=== PATIENT | female | born 1990 | race Caucasian/White ===

== ENCOUNTER 2016-05-03 13:17 | Inpatient (IN) | payer OTHER ==
[2016-05-03 13:49] VITALS: BMI 18.3
--- NOTE | 2016-05-03 14:57 | HP ---
COWS - Scale Resting Pulse: 1= [place] 81-100 Sweatin=Flushed/Facial Moisture Restless Observation: 3= Extraneous Movement Pupil Size: 2= Moderately Dilated Bone or Joint Aches: 2= Severe Diffuse Aches Runny Nose/ Eye Tearin= Runny Nose/Eyes GI Upset > 30mins: 3= Vomiting/Diarrhea Tremor Observation: 2= Slight Tremor Visible Yawning Observation: 2= >3x During Session Anxiety or Irritability: 2=Irritable/Anxious Goose Flesh Skin: 0=Smooth Skin COWS Score: 21 Admission ROS S - HPI Chief Complaint: i need help to stop using drugs Allergies/Adverse Reactions: Allergies Allergy/AdvReac Type Severity Reaction Status Date / Time No Known Allergies Allergy Verified 10/01/15 17:12 History of Present Illness: this 26 years old female with heroin and cocaine dependence,with withdrawal symptom,[facility]15 not completed anxiety,depression,insomnia weight loss nicotine dependence longest period of sobriety 8 months - Ebola screening Have you traveled outside of the country in the last 21 days: No (N) Have you had contact with anyone from an Ebola affected area: No Have you been sick,other than usual withdrawal symptoms: No Do you have a fever: No - Review of Systems Constitutional: Chills, Diaphoresis, Loss of Appetite, Malaise, Night Sweats, Changes in sleep, Weakness, Unintentional Wgt. Loss EENT: reports: Tearing, Nose Congestion Respiratory: reports: No Symptoms reported Cardiac: reports: No Symptoms Reported GI: reports: Diarrhea, Nausea, Vomiting, Abdominal cramping : reports: No Symptoms Reported Musculoskeletal: reports: Back Pain, Joint Pain, Muscle Pain, Neck Pain Integumentary: reports: Dryness Neuro: reports: Headache, Tremors Endocrine: reports: No Symptoms Reported Hematology: reports: No Symptoms Reported Psychiatric: reports: Anxious, Depressed Other Systems: Reviewed and Negative Patient History - Patient Medical History Hx Anemia: No Hx Asthma: Yes (MDI) Hx Chronic Obstructive Pulmonary Disease (COPD): No Hx Cardiac Disorders: No Hx Hypertension: No Hx Hypercholesterolemia: No HX Cerebrovascular Accident: No Hx Seizures: Yes (LAST EPISODE 03/2015) Hx Diabetes: No Hx Gastrointestinal Disorders: No Hx Genitourinary Disorders: No Hx Sexually Transmitted Disorders: No Hx Renal Disease (ESRD): No Hx Thyroid Disease: No Hx Human Immunodeficiency Virus (HIV): No (NEGATIVE HX last 2015 ) Hx Hepatitis C: No Hx Depression: Yes (STOPPED TAKING SEROQUEL IN JUNE) Hx Suicide Attempt: Yes (pill overdose in 02/2015;DENIES CURRENT IDEATIONS.) Hx Bipolar Disorder: Yes Hx Schizophrenia: No Other Medical History: no suicidal,no homicidal - Patient Surgical History Past Surgical History: No Hx Neurologic Surgery: No Hx Cataract Extraction: No Hx Cardiac Surgery: No Hx Lung Surgery: No Hx Breast Surgery: No Hx Breast Biopsy: No Hx Abdominal Surgery: No Hx Appendectomy: No Hx Cholecystectomy: No Hx Genitourinary Surgery: No Hx Section: No Hx Orthopedic Surgery: No Anesthesia Reaction: No - PPD History Previous Implant?: Yes Documented Results: Negative w/o proof Date: 10/03/15 PPD to be Administered?: No - Reproductive History Patient is a Female of Child Bearing Age (11 -55 yrs old): Yes Last Menstrual Period: 12/03/15 Patient : No - Smoking Cessation Smoking history: Current every day smoker Have you smoked in the past 12 months: Yes Aproximately how many cigarettes per day: 10 Hx Chewing Tobacco Use: No Initiated information on smoking cessation: No 'Breaking Loose' booklet given: 05/03/16 - Substance & Tx. History Hx Alcohol Use: No Hx Substance Use: Yes Substance Use Type: Cocaine, Heroin Hx Substance [facility] - Substances Abused Heroin Route: Injection Frequency: Daily Amount used: 5 to 6 bags Age of first use: 24 Date of Last Use: 05/03/16 Cocaine Route: Smoking Frequency: Daily Amount used: 50$ Age of first use: 22 Date of Last Use: 05/02/16 Family Disease History - Family Disease History Family Disease History: CA: Grandparent (GF ALCOHOLISM/GANGRENE STOMACH- ), Other: Mother (BIPOLAR/ALCOHOLISM) Admission Physical Exam BHS - Vital Signs Vital Signs: Vital Signs - 24 hr 05/03/16 13:48 Temperature 98.2 F Pulse Rate 91 H Respiratory 18 Rate Blood Pressure 129/75 - Physical General Appearance: Yes: Moderate Distress, Intoxicated, Tremorous, Irritable, Sweating, Anxious HEENTM: Yes: Nasal Congestion, Rhinorrhea Respiratory: Yes: Lungs Clear Neck: Yes: Within Normal Limits Breast: Yes: Breast Exam Deferred Cardiology: Yes: Within Normal Limits, Regular Rhythm, Regular Rate, S1, S2 Abdominal: Yes: Within Normal Limits, Normal Bowel Sounds, Non Tender, Flat, Soft Genitourinary: Yes: Within Normal Limits Back: Yes: Muscle Spasm Musculoskeletal: Yes: Back pain, Joint Stiffness, Muscle Pain Extremities: Yes: Within Normal Limits, Tremors Neurological: Yes: paper plate machine tender II-XII NML intact, Fully Oriented, Alert, Motor Strength 5/5 Integumentary: Yes: Dry, Track [place] Lymphatic: Yes: Within Normal Limits - Diagnostic (1) Asthma Current Visit: No Status: Chronic Qualifiers: Asthma severity: mild intermittent Asthma complication type: uncomplicated Qualified Code(s): J45.20 - Mild intermittent asthma, uncomplicated (2) Cocaine dependence, uncomplicated Current Visit: No Status: Chronic (3) Opioid dependence with withdrawal Current Visit: No Status: Chronic (4) Seizure disorder Current Visit: No Status: Suspected (5) Anxiety and depression Current Visit: Yes Status: Acute (6) Weight loss Current Visit: Yes Status: Acute Cleared for Admission [facility] - Detox or Rehab [facility] Level of Care: Medically Managed Detox Regimen/Protocol: Methadone [facility] Breath Alcohol Content Breath Alcohol Content: 0 Urine Pregancy Test - Result Urine Test Results: Negative- NO Line Present Urine Drug Screen - Results Drug Screen Negative: No Urine Drug Screen Results: ROSALIO-Cocaine, OPI-Opiates, TCA-Tricyclic Antidepress
[2016-05-03] MEDS ORDERED: METHADONE HCL 10 MG TABLET (FOR DETOX USE ONLY) PO ONE ×3 (15:15→23:00)
[2016-05-03] MEDS ORDERED: P-EPHED 60MG/TRIPROLIDI 2.5MG TABLET PO PRN (15:15)
[2016-05-03] MEDS ORDERED: MENTHOL/PHENOL 1 EACH UD MM PRN (15:15)
[2016-05-03] MEDS ORDERED: guaiFENesin/D-METHORPHAN HB 10 ML UNIT-DOSE CUPS PO PRN (15:15)
[2016-05-03] MEDS ORDERED: ACETAMINOPHEN 325 MG TABLET (FP) PO PRN (15:15)
[2016-05-03] MEDS ORDERED: LOPERAMIDE HCL 2 MG CAPSULE PO PRN (15:15)
[2016-05-03] MEDS ORDERED: MAGNESIUM CITRATE 300 ML BOTTLE PO PRN (15:15)
[2016-05-03] MEDS ORDERED: MAG HYDROX/AL HYDROX/SIMETH 30 ML UNIT-DOSE CUP PO PRN (15:15)
[2016-05-03] MEDS ORDERED: ALBUTEROL SO4 6.7 GM HFA INHALER IH PRN (15:18)
[2016-05-03] MEDS: diazePAM 5 MG TABLET PO PRN (19:57)
[2016-05-03] MEDS: diphenhydrAMINE HCL 50 MG CAPSULE PO PRN (22:17)
[2016-05-03] MEDS: THIAMINE HCL 100 MG TABLET (FP) PO SCH (22:17)
[2016-05-04] MEDS: MAGNESIUM HYDROX 2400MG/30ML ORAL SUSPENSION 30 ML CUP PO PRN ×2 (00:07→18:11)
[2016-05-04 09:14] LABS: MCH 29.3 pg (25.7-33.7); MCHC 33.8 g/dl (32.0-36.0); MEAN CELL VOLUME 86.7 fl (80-96); MEAN PLT VOLUME 7.5 fl (7.5-11.1); PLATELET COUNT 246 K/MM3 (134-434); RDW 14.7 % (11.6-15.6); WHITE BLOOD COUNT 5.4 K/mm3 (4.0-10.0)
[2016-05-04 09:28] LABS: ANION GAP 9 (8-16); CALCIUM 7.9 mg/dL (8.5-10.1); CO2 24 mmol/L (21-32); GLUCOSE,RANDOM 165 mg/dL (74-106)
[2016-05-04 09:32] LABS: ALK PHOS 67 U/L (45-117); BILIRUBIN,TOTAL 0.3 mg/dL (0.2-1.0); CREATININE 0.8 mg/dL (0.55-1.02); SGOT/AST 15 U/L (15-37); SGPT/ALT 18 U/L (12-78); TOT PROT 6.4 g/dl (6.4-8.2)
[2016-05-04] MEDS ORDERED: METHADONE HCL 10 MG TABLET (FOR DETOX USE ONLY) PO ONE (10:00)
[2016-05-04] MEDS: PRENATAL VITAMINS W/ FOLIC ACID TABLET (FP) PO SCH (10:33)
--- NOTE | 2016-05-04 11:32 | PN ---
BHS COWS - Scale Resting Pulse: 2= MT 101-120 Sweatin= Chills/Flushing Restless Observation: 3= Extraneous Movement Pupil Size: 1= Pupils >than Normal Bone or Joint Aches: 2= Severe Diffuse Aches Runny Nose/ Eye Tearin= Runny Nose/Eyes GI Upset > 30mins: 2= Nausea/Diarrhea Tremor Observation of Outstretched Hands: 2= Slight Tremor Visible Yawning Observation: 1= 1-2x During Session Anxiety or Irritability: 2=Irritable/Anxious Goose Flesh Skin: 0=Smooth Skin COWS Score: 18 S Progress Note (SOAP) Subjective: ALERT,IRRITABLE,ANXIOUS,INTERRUPTED SLEEP,PAIN IN THE BODY AND BACK Objective: 05/04/16 11:30 Vital Signs Temperature 98.6 F 05/04/16 10:00 Pulse Rate 101 H 05/04/16 10:00 Respiratory Rate 18 05/04/16 10:00 Blood Pressure 115/65 05/04/16 10:00 O2 Sat by Pulse Oximetry (%) EKG NSR,NORMAL ECG 05/04/16 11:30 Laboratory Last Values WBC 5.4 K/mm3 (4.0-10.0) 05/04/16 07:20 RBC 4.36 M/mm3 (3.60-5.2) 05/04/16 07:20 Hgb 12.8 GM/dL (10.7-15.3) 05/04/16 07:20 Hct 37.8 % (32.4-45.2) 05/04/16 07:20 MCV 86.7 fl (80-96) 05/04/16 07:20 MCHC 33.8 g/dl (32.0-36.0) 05/04/16 07:20 RDW 14.7 % (11.6-15.6) 05/04/16 07:20 Plt Count 246 K/MM3 (134-434) 05/04/16 07:20 MPV 7.5 fl (7.5-11.1) 05/04/16 07:20 Sodium 138 mmol/L (136-145) 05/04/16 07:20 Potassium 3.8 mmol/L (3.5-5.1) 05/04/16 07:20 Chloride 105 mmol/L (98-107) 05/04/16 07:20 Carbon Dioxide 24 mmol/L (21-32) 05/04/16 07:20 Anion Gap 9 (8-16) 05/04/16 07:20 BUN 11 mg/dL (7-18) 05/04/16 07:20 Creatinine 0.8 mg/dL (0.55-1.02) 05/04/16 07:20 Creat Clearance w eGFR > 60 (>60) 05/04/16 07:20 Random Glucose 165 mg/dL (74-106) H D 05/04/16 07:20 Calcium 7.9 mg/dL (8.5-10.1) L 05/04/16 07:20 Total Bilirubin 0.3 mg/dL (0.2-1.0) D 05/04/16 07:20 AST 15 U/L (15-37) D 05/04/16 07:20 ALT 18 U/L (12-78) 05/04/16 07:20 Alkaline Phosphatase 67 U/L (45-117) 05/04/16 07:20 Total Protein 6.4 g/dl (6.4-8.2) 05/04/16 07:20 Albumin 3.0 g/dl (3.4-5.0) L 05/04/16 07:20 RPR Titer Nonreactive (NONREACTIVE) 05/04/16 07:20 Assessment: 05/04/16 11:31 WITHDRAWAL SYMPTOM Plan: CONTINUE DETOX,BGM MONITORING,INITIAL GLUCOSE 165
[2016-05-04 13:39] LABS: URINE APPEARANCE SLCLOUDY; URINE BILIRUBIN NEGATIVE (NEGATIVE); URINE BLOOD NEGATIVE (NEGATIVE); URINE COLOR LTYELLOW; URINE GLUCOSE (UA) NEGATIVE (NEGATIVE); URINE KETONE NEGATIVE (NEGATIVE); URINE LEUK ESTERASE NEGATIVE (NEGATIVE); URINE NITRITE NEGATIVE (NEGATIVE); URINE PROTEIN NEGATIVE (NEGATIVE); URINE UROBILINOGEN NEGATIVE E.U./dl (0.2-1.0)
--- NOTE | 2016-05-04 14:39 | EKG ---
Test Reason : Blood Pressure : / mmHG Vent. Rate : 096 BPM Atrial Rate : 096 BPM P-R Int : 168 ms QRS Dur : 094 ms QT Int : 332 ms P-R-T Axes : 064 012 058 degrees QTc Int : 419 ms NORMAL SINUS RHYTHM NORMAL ECG NO PREVIOUS ECGS AVAILABLE Confirmed by IDALIA ISRAEL MD ([id number]) on 05/04/2016 2:39:33 PM Referred By: Confirmed By:IDALIA ISRAEL MD
[2016-05-04] MEDS: diazePAM 5 MG TABLET PO PRN ×2 (17:02→23:44)
[2016-05-04] MEDS: IBUPROFEN 400 MG TABLET (FP) PO PRN (18:13)
[2016-05-04] MEDS: NICOTINE POLACRILEX 2 MG GUM BC PRN ×2 (20:39→23:44)
[2016-05-04] MEDS: diphenhydrAMINE HCL 50 MG CAPSULE PO PRN (23:25)
[2016-05-04] MEDS: THIAMINE HCL 100 MG TABLET (FP) PO SCH (23:25)
[2016-05-05] MEDS: IBUPROFEN 400 MG TABLET (FP) PO PRN (08:50)
[2016-05-05] MEDS ORDERED: METHADONE HCL 5 MG TABLET (FOR DETOX USE ONLY) PO ONE (10:00)
[2016-05-05] MEDS: hydrOXYzine PAMOATE 25 MG CAPSULE (FP) PO PRN ×2 (10:06→13:53)
[2016-05-05] MEDS: PRENATAL VITAMINS W/ FOLIC ACID TABLET (FP) PO SCH (10:06)
[2016-05-05] MEDS: diazePAM 5 MG TABLET PO PRN (10:06)
--- NOTE | 2016-05-05 10:09 | PN ---
BHS COWS - Scale Resting Pulse: 1= [place] 81-100 Sweatin= Chills/Flushing Restless Observation: 3= Extraneous Movement Pupil Size: 1= Pupils >than Normal Bone or Joint Aches: 2= Severe Diffuse Aches Runny Nose/ Eye Tearin= Nasal Congestion GI Upset > 30mins: 2= Nausea/Diarrhea Tremor Observation of Outstretched Hands: 2= Slight Tremor Visible Yawning Observation: 1= 1-2x During Session Anxiety or Irritability: 2=Irritable/Anxious Goose Flesh Skin: 0=Smooth Skin COWS Score: 16 BHS Progress Note (SOAP) Subjective: ALERT,IRRITABLE,ANXIOUS,INTERRUPTED SLEEP,TREMOR,PAIN IN THE BODY AND BACK Objective: 05/05/16 10:08 Vital Signs Temperature 98.1 F 05/05/16 09:50 Pulse Rate 99 H 05/05/16 09:50 Respiratory Rate 16 05/05/16 09:50 Blood Pressure 136/66 05/05/16 09:50 O2 Sat by Pulse Oximetry (%) [facility] 102 Assessment: 05/05/16 10:08 WITHDRAWAL SYMPTOM Plan: CONTINUE DETOX
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
[2016-05-05] MEDS: NICOTINE POLACRILEX 2 MG GUM BC PRN (12:33)
[2016-05-05] MEDS ORDERED: cloNIDine HCL 0.1 MG TABLET PO ONE (12:45)
[2016-05-05] MEDS: CYCLOBENZAPRINE HCL 10 MG TABLET (FP) PO PRN ×2 (12:53→22:27)
[2016-05-05] MEDS: MAGNESIUM HYDROX 2400MG/30ML ORAL SUSPENSION 30 ML CUP PO PRN (13:53)
[2016-05-05] MEDS: cloNIDine HCL 0.1 MG TABLET PO SCH (22:27)
[2016-05-05] MEDS: THIAMINE HCL 100 MG TABLET (FP) PO SCH (22:28)
[2016-05-05] MEDS: ZOLPIDEM TARTRATE 10 MG TABLET (PARK CARE ONLY) PO PRN (22:30)
[2016-05-06] MEDS: diazePAM 5 MG TABLET PO PRN ×2 (04:11→12:43)
[2016-05-06] MEDS: IBUPROFEN 400 MG TABLET (FP) PO PRN (04:11)
[2016-05-06] MEDS ORDERED: METHADONE HCL 5 MG TABLET (FOR DETOX USE ONLY) PO ONE (10:00)
[2016-05-06] MEDS: ESCITALOPRAM OXALATE 10 MG TABLET (FP) PO SCH (10:48)
[2016-05-06] MEDS: cloNIDine HCL 0.1 MG TABLET PO SCH ×2 (10:48→22:22)
[2016-05-06] MEDS: PRENATAL VITAMINS W/ FOLIC ACID TABLET (FP) PO SCH (10:48)
[2016-05-06] MEDS ORDERED: FLUCONAZOLE 50 MG TABLET PO ONE (14:00)
--- NOTE | 2016-05-06 14:11 | PN ---
[facility] Progress Note (SOAP) Subjective: interrupted sleep, sweats, bodyaches , vaginal whitish d/c /itch Objective: 05/06/16 14:09 Vital Signs Temperature 97.7 F 05/06/16 13:58 Pulse Rate 112 H 05/06/16 13:58 Respiratory Rate 20 05/06/16 13:58 Blood Pressure 121/70 05/06/16 13:58 O2 Sat by Pulse Oximetry (%) Laboratory Tests 05/04/16 05/04/16 05/04/16 07:20 07:20 07:20 WBC 5.4 RBC 4.36 Hgb 12.8 Hct 37.8 MCV 86.7 MCHC 33.8 RDW 14.7 Plt Count 246 MPV 7.5 Sodium 138 Potassium 3.8 Chloride 105 Carbon Dioxide 24 Anion Gap 9 BUN 11 Creatinine 0.8 Creat Clearance w eGFR > 60 POC Glucometer Random Glucose 165 H D Calcium 7.9 L Total Bilirubin 0.3 D AST 15 D ALT 18 Alkaline Phosphatase 67 Total Protein 6.4 Albumin 3.0 L Urine Color Urine Appearance Urine pH Ur Specific [place] Urine Protein Urine Glucose (UA) Urine Ketones Urine Blood Urine Nitrite Urine Bilirubin Urine Urobilinogen Ur Leukocyte Esterase RPR Titer Nonreactive 05/04/16 05/05/16 05/06/16 12:00 07:30 06:06 WBC RBC Hgb Hct MCV MCHC RDW Plt Count MPV Sodium Potassium Chloride Carbon Dioxide Anion Gap BUN Creatinine Creat Clearance w eGFR POC Glucometer 102 97 Random Glucose Calcium Total Bilirubin AST ALT Alkaline Phosphatase Total Protein Albumin Urine Color Ltyellow Urine Appearance Slcloudy Urine pH 5.0 D Ur Specific [place] 1.010 Urine Protein Negative Urine Glucose (UA) Negative Urine Ketones Negative Urine Blood Negative Urine Nitrite Negative Urine Bilirubin Negative Urine Urobilinogen Negative Ur Leukocyte Esterase Negative RPR Titer pt aox3 in nad ambulating Assessment: 05/06/16 14:10 withdrawl sx's lbp Plan: cont. sdetox increase fluids flexeril 10mg tid/prn diflucan 150mg x 1 motrin prn
[2016-05-06] MEDS: NICOTINE POLACRILEX 2 MG GUM BC PRN ×2 (14:23→21:26)
[2016-05-06] MEDS: hydrOXYzine PAMOATE 25 MG CAPSULE (FP) PO PRN (18:14)
[2016-05-06] MEDS: THIAMINE HCL 100 MG TABLET (FP) PO SCH (22:22)
[2016-05-06] MEDS: ZOLPIDEM TARTRATE 10 MG TABLET (PARK CARE ONLY) PO PRN (22:22)
[2016-05-06] MEDS: CYCLOBENZAPRINE HCL 10 MG TABLET (FP) PO PRN (23:01)
[2016-05-07] MEDS ORDERED: METHADONE HCL 5 MG TABLET (FOR DETOX USE ONLY) PO ONE (09:00)
--- NOTE | 2016-05-07 09:13 | DS ---
[facility] Detox Discharge Summary Admission Date: 05/03/16 Discharge Date: 05/07/16 - History Present History: Cannabis Dependence, Cocaine Dependence, Opioid Dependence - Physical Exam Results Vital Signs: Vital Signs Temperature 98.8 F 05/07/16 06:23 Pulse Rate 74 05/07/16 06:23 Respiratory Rate 18 05/07/16 06:23 Blood Pressure 119/76 05/07/16 06:23 O2 Sat by Pulse Oximetry (%) - Treatment Hospital Course: Detox Protocol Followed, Detoxed Safely, Responded well, Discharged Condition Good - Medication Discharge Medications: Ambulatory Orders Albuterol Sulfate Inhaler - [Ventolin HFA Inhaler -] 2 inh PO Q4H 10/01/15 Escitalopram Oxalate [Lexapro -] 10 mg PO DAILY #30 tablet 05/05/16 Albuterol Sulfate Inhaler - [Ventolin HFA Inhaler -] 2 puff IH Q4H PRN #1 inhaler 05/07/16 - Diagnosis (1) Bipolar 1 disorder, depressed Current Visit: Yes Status: Chronic (2) PTSD (post-traumatic stress disorder) Current Visit: Yes Status: Chronic (3) Weight loss Current Visit: Yes Status: Acute (4) Asthma Current Visit: Yes Status: Chronic Qualifiers: Asthma severity: mild intermittent Asthma complication type: uncomplicated Qualified Code(s): J45.20 - Mild intermittent asthma, uncomplicated (5) Cannabis abuse Current Visit: No Status: Chronic (6) Cocaine dependence, uncomplicated Current Visit: Yes Status: Chronic (7) Opioid dependence with withdrawal Current Visit: No Status: Chronic - AMA Did Patient Leave Against Medical Advice: No (pt being d/c'ed early at her request feels better)
[2016-05-07] MEDS: CYCLOBENZAPRINE HCL 10 MG TABLET (FP) PO PRN (09:54)
[2016-05-07] MEDS: hydrOXYzine PAMOATE 25 MG CAPSULE (FP) PO PRN (09:54)
[2016-05-07] MEDS: PRENATAL VITAMINS W/ FOLIC ACID TABLET (FP) PO SCH (09:54)
[2016-05-07] MEDS: cloNIDine HCL 0.1 MG TABLET PO SCH (09:54)
[2016-05-07] MEDS: ESCITALOPRAM OXALATE 10 MG TABLET (FP) PO SCH (09:54)
[2016-05-07] MEDS ORDERED: METHADONE HCL 10 MG TABLET (FOR DETOX USE ONLY) PO ONE (10:00)
[2016-05-07 10:01] VITALS: BP 112/66; PULSE 108; TEMP 98.6
[2016-05-08] MEDS ORDERED: METHADONE HCL 5 MG TABLET (FOR DETOX USE ONLY) PO ONE (06:00)
== END 2016-05-07 10:30 | disposition home or self-care (01) | DRG 773 ==
LOC: YASAS 13:17 → Y6N 14:18
PROVIDERS: ADMIT Internal Medicine; ATTEND Internal Medicine
PROC: HZ2ZZZZ Detoxification Services for Substance Abuse Treatment (ICD-10-PCS; principal; 2016-05-03)
DX: F11.23 Opioid dependence with withdrawal (principal); F14.20 Cocaine dependence, uncomplicated; F12.10 Cannabis abuse, uncomplicated; F17.210 Nicotine dependence, cigarettes, uncomplicated; F31.9 Bipolar disorder, unspecified; F43.10 Post-traumatic stress disorder, unspecified; F41.8 Other specified anxiety disorders; J45.20 Mild intermittent asthma, uncomplicated; M54.5 Low back pain; G47.00 Insomnia, unspecified; Z87.898 Personal history of other specified conditions; Z86.69 Personal history of other diseases of the nervous system and sense organs; Z91.5 Personal history of self-harm
CPT/HCPCS: 36415; 80053; 81003; 85027; 86593; 93005; 93010

== ENCOUNTER 2017-08-21 12:59 | Inpatient (IN) | payer OTHER ==
[2017-08-21 15:12] VITALS: BMI 16.2
--- NOTE | 2017-08-21 15:21 | HP ---
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 Allergies/Adverse Reactions: Allergies Allergy/AdvReac Type Severity Reaction Status Date / Time No Known Allergies Allergy Verified 08/21/17 15:09 History of Present Illness: this 27 years od female with cocaine,crystal meth,ecstasy,heroin abused,mmtp 150 mgs/day,last medicated today nicotine dependence insomnia,anxiety,depression weight loss longest sobriety 1 year - Ebola screening Have you traveled outside of the country in the last 21 days: No Have you had contact with anyone from an Ebola affected area: No - Review of Systems Constitutional: No Symptoms Reported, Loss of Appetite, Malaise, Unintentional Wgt. Loss EENT: reports: Nose Congestion Respiratory: reports: No Symptoms reported Cardiac: reports: No Symptoms Reported GI: reports: No Symptoms Reported : reports: No Symptoms Reported Musculoskeletal: reports: No Symptoms Reported Integumentary: reports: No Symptoms Reported Neuro: reports: No Symptoms reported Endocrine: reports: No Symptoms Reported Hematology: reports: No Symptoms Reported Psychiatric: reports: No Sypmtoms Reported, Judgement Intact, Mood/Affect Appropiate, Anxious, Depressed Patient History - Patient Medical History Hx Anemia: No Hx Asthma: Yes (MDI) Hx Chronic Obstructive Pulmonary Disease (COPD): No Hx Cardiac Disorders: No Hx Hypertension: No Hx Hypercholesterolemia: No HX Cerebrovascular Accident: No Hx Seizures: No Hx Diabetes: No Hx Gastrointestinal Disorders: No Hx Genitourinary Disorders: No Hx Sexually Transmitted Disorders: No Hx Renal Disease (ESRD): No Hx Thyroid Disease: No Hx Human Immunodeficiency Virus (HIV): No (NEGATIVE HX last 2015 ) Hx Hepatitis C: No Hx Depression: Yes (STOPPED TAKING SEROQUEL IN JUNE) Hx Suicide Attempt: Yes (pill overdose in 02/2015;DENIES CURRENT IDEATIONS.) Hx Bipolar Disorder: Yes Hx Schizophrenia: No Other Medical History: no suicidal,no homicidal - Patient Surgical History Past Surgical History: No Hx Neurologic Surgery: No Hx Cataract Extraction: No Hx Cardiac Surgery: No Hx Lung Surgery: No Hx Breast Surgery: No Hx Breast Biopsy: No Hx Abdominal Surgery: No Hx Appendectomy: No Hx Cholecystectomy: No Hx Genitourinary Surgery: No Hx Section: No Hx Orthopedic Surgery: No Anesthesia Reaction: No - PPD History Previous Implant?: Yes Documented Results: Negative w/o proof Date: 10/03/15 PPD to be Administered?: Yes - Reproductive History Patient is a Female of Child Bearing Age (11 -55 yrs old): Yes Last Menstrual Period: 06/22/17 Patient : No - Smoking Cessation Smoking history: Current every day smoker Have you smoked in the past 12 months: Yes Aproximately how many cigarettes per day: 10 Hx Chewing Tobacco Use: No Initiated information on smoking cessation: Yes 'Breaking Loose' booklet given: 08/21/17 - Substance & Tx. History Hx Alcohol Use: No Hx Substance Use: Yes Substance Use Type: Cocaine, Marijuana Hx Substance Use Treatment: Yes ([facility] 05/03/16 to 05/07/16) Family Disease History - Family Disease History Family Disease History: CA: Grandparent (GF ALCOHOLISM/GANGRENE STOMACH- ), Other: Mother (BIPOLAR/ALCOHOLISM), Brother (alcohol), Sister (alcohol) Admission Physical Exam BHS - Vital Signs Vital Signs: Vital Signs Temperature 97.5 F L 08/21/17 15:10 Pulse Rate 70 08/21/17 15:10 Respiratory Rate 18 08/21/17 15:10 Blood Pressure 95/61 08/21/17 15:10 O2 Sat by Pulse Oximetry (%) - Physical General Appearance: Yes: Within Normal Limits HEENTM: Yes: Normal ENT Inspection, NGUYỄN, Pharynx Normal Respiratory: Yes: Lungs Clear, Normal Breath Sounds, No Respiratory Distress Neck: Yes: Within Normal Limits, Supple, Trachea in good position Breast: Yes: Breast Exam Deferred Cardiology: Yes: Within Normal Limits, Regular Rhythm, Regular Rate, S1, S2 Abdominal: Yes: Normal Bowel Sounds, Non Tender, Soft Genitourinary: Yes: Within Normal Limits Back: Yes: Within Normal Limits Musculoskeletal: Yes: Within Normal Limits Extremities: Yes: Within Normal Limits Neurological: Yes: well control instructor II-XII NML intact, Fully Oriented, Alert, Motor Strength 5/5 Integumentary: Yes: Within Normal Limits Lymphatic: Yes: Within Normal Limits - Diagnostic (1) Cocaine dependence Current Visit: Yes Status: Acute (2) Weight loss Current Visit: No Status: Acute (3) Asthma Current Visit: No Status: Chronic Qualifiers: Asthma severity: mild intermittent Asthma complication type: uncomplicated Qualified Code(s): J45.20 - Mild intermittent asthma, uncomplicated (4) Cannabis dependence Current Visit: Yes Status: Acute (5) Insomnia secondary to depression with anxiety Current Visit: Yes Status: Acute (6) Nicotine dependence Current Visit: Yes Status: Acute Cleared for Admission [facility] - Detox or Rehab Claeared for Rehab Admission: Yes [facility] Breath Alcohol Content Breath Alcohol Content: 0 Inpatient Rehab Admission - Initial Determination Are CD services needed?: Yes Free of communicable disease: Yes Not in need of hospitalization: Yes - Rehab Admission Criteria Previous failed treatment: Yes Poor recovery environment: Yes Comorbidities: Yes Patient is meeting Inpatient Rehab admission criteria:: Yes
[2017-08-21] MEDS ORDERED: ACETAMINOPHEN 325 MG TABLET (FP) PO PRN (15:46)
[2017-08-21] MEDS ORDERED: guaiFENesin/D-METHORPHAN HB 10 ML UNIT-DOSE CUPS PO PRN (15:46)
[2017-08-21] MEDS ORDERED: MENTHOL/PHENOL 1 EACH UD MM PRN (15:46)
[2017-08-21] MEDS ORDERED: MAGNESIUM CITRATE 300 ML BOTTLE PO PRN (15:46)
[2017-08-21] MEDS ORDERED: P-EPHED 60MG/TRIPROLIDI 2.5MG TABLET PO PRN (15:46)
[2017-08-21] MEDS ORDERED: MAG HYDROX/AL HYDROX/SIMETH 30 ML UNIT-DOSE CUP PO PRN (15:46)
[2017-08-21] MEDS ORDERED: LOPERAMIDE HCL 2 MG CAPSULE PO PRN (15:46)
[2017-08-21] MEDS ORDERED: MAGNESIUM HYDROX 2400MG/30ML ORAL SUSPENSION 30 ML CUP PO PRN (15:46)
[2017-08-21] MEDS ORDERED: ALBUTEROL SO4 18 GM HFA INHALER IH PRN (15:52)
[2017-08-21] MEDS ORDERED: TUBERCULIN PPD 5 TU/0.1ML VIAL ID ONE (18:39)
[2017-08-21] MEDS: THIAMINE HCL 100 MG TABLET (FP) PO SCH (21:28)
[2017-08-21] MEDS: hydrOXYzine PAMOATE 25 MG CAPSULE (FP) PO PRN (21:28)
[2017-08-21] MEDS: MELATONIN 5 MG TABLETS PO PRN (21:28)
[2017-08-21] MEDS: NICOTINE 21 MG/24 HOURS TOPICAL PATCH TD SCH (21:29)
[2017-08-22] MEDS ORDERED: METHADONE HCL 10 MG TABLET PO SCH (08:15)
[2017-08-22] MEDS ORDERED: METHADONE HCL 10 MG TABLET ONE (09:19)
[2017-08-22] MEDS ORDERED: METHADONE HCL 40 MG DISPERSABLE TABLET ONE (09:19)
[2017-08-22] MEDS: METHADONE 120 MG, METHADONE 30 MG PO SCH (09:21)
[2017-08-22] MEDS: PRENATAL VITAMINS W/ FOLIC ACID TABLET (FP) PO SCH (09:22)
[2017-08-22] MEDS: NICOTINE 21 MG/24 HOURS TOPICAL PATCH TD SCH (09:22)
[2017-08-22 10:46] LABS: HEMATOCRIT 39.7 % (32.4-45.2); HEMOGLOBIN 13.2 GM/dL (10.7-15.3); MCH 28.4 pg (25.7-33.7); MCHC 33.2 g/dl (32.0-36.0); MEAN CELL VOLUME 85.6 fl (80-96); MEAN PLT VOLUME 8.4 fl (7.5-11.1); PLATELET COUNT 318 K/MM3 (134-434); RBC 4.63 M/mm3 (3.60-5.2); RDW 13.6 % (11.6-15.6); WHITE BLOOD COUNT 8.1 K/mm3 (4.0-10.0)
[2017-08-22 10:50] LABS: CHLORIDE 105 mmol/L (98-107); POTASSIUM 4.3 mmol/L (3.5-5.1); SODIUM 140 mmol/L (136-145)
[2017-08-22 11:08] LABS: ALBUMIN 4.1 g/dl (3.4-5.0); ALK PHOS 90 U/L (45-117); ANION GAP 8 (8-16); BILIRUBIN,TOTAL 0.3 mg/dL (0.2-1.0); BLOOD UREA NITROGEN 16 mg/dL (7-18); CALCIUM 8.9 mg/dL (8.5-10.1); CO2 27 mmol/L (21-32); CREATININE 0.8 mg/dL (0.55-1.02); GLUCOSE,RANDOM 118 mg/dL (74-106); SGOT/AST 16 U/L (15-37); SGPT/ALT 23 U/L (12-78); TOT PROT 8.2 g/dl (6.4-8.2)
[2017-08-22] MEDS ORDERED: PNEUMOC 13-VAL CONJ-DIP CRM/PF 0.5 ML DISP.SYRIN IM ONE (12:00)
[2017-08-22] MEDS ORDERED: PNEUMOCOCCAL 23 VACCINE 0.5 ML VIAL IM ONE (13:00)
--- NOTE | 2017-08-22 14:39 | EKG ---
Test Reason : Blood Pressure : / mmHG Vent. Rate : 082 BPM Atrial Rate : 082 BPM P-R Int : 194 ms QRS Dur : 104 ms QT Int : 404 ms P-R-T Axes : 072 038 061 degrees QTc Int : 472 ms NORMAL SINUS RHYTHM CANNOT RULE OUT ANTERIOR INFARCT , AGE UNDETERMINED ABNORMAL ECG WHEN COMPARED WITH ECG OF 03-MAY-2016 17:36, QT HAS LENGTHENED Confirmed by MD Spencer, Rod ([id number]) on 08/22/2017 2:39:08 PM Referred By: Confirmed By:Rod Palmer MD
--- NOTE | 2017-08-22 20:22 | PN ---
[facility] Progress Note Note: Psychiatry Attending's on-call note : Made aware earlier of patient's admission to [facility]. Engineering Team Supervisor was contacted by RN Constance to enter order for seroquel. Chart reviewed.Records revisited.Patient already known to me. Known history of oversedation.Medication NOT taken for more than a month. In view of current trend of hypotension, will not resume seroquel at this time. Further observation is needed.Insomnia is addressed with melatonin 5 mg po hs. Discussed with nurse on duty.Will follow.
[2017-08-22] MEDS: THIAMINE HCL 100 MG TABLET (FP) PO SCH (21:21)
[2017-08-22] MEDS: hydrOXYzine PAMOATE 25 MG CAPSULE (FP) PO PRN (21:22)
[2017-08-22] MEDS: IBUPROFEN 400 MG TABLET (FP) PO PRN (21:22)
[2017-08-22] MEDS: MELATONIN 5 MG TABLETS PO PRN (21:22)
[2017-08-22 22:39] LABS: URINE APPEARANCE CLOUDY; URINE BILIRUBIN NEGATIVE (<2.0 mg/dL); URINE COLOR YELLOW; URINE GLUCOSE (UA) NEGATIVE (NEGATIVE); URINE KETONE NEGATIVE (NEGATIVE); URINE LEUK ESTERASE TRACE (NEGATIVE); URINE NITRITE NEGATIVE (NEGATIVE); URINE PROTEIN NEGATIVE (NEGATIVE); URINE UROBILINOGEN NEGATIVE mg/dL (0.2-1.0)
[2017-08-22 22:44] LABS: EPI CELLS MODERATE /HPF (FEW); URINE MUCUS RARE
[2017-08-23] MEDS ORDERED: METHADONE HCL 10 MG TABLET ONE (03:29)
[2017-08-23] MEDS ORDERED: METHADONE HCL 40 MG DISPERSABLE TABLET ONE (03:29)
[2017-08-23] MEDS: METHADONE 120 MG, METHADONE 30 MG PO SCH (06:56)
[2017-08-23] MEDS: NICOTINE 21 MG/24 HOURS TOPICAL PATCH TD SCH (09:06)
[2017-08-23] MEDS: PRENATAL VITAMINS W/ FOLIC ACID TABLET (FP) PO SCH (09:06)
[2017-08-23] MEDS: hydrOXYzine PAMOATE 25 MG CAPSULE (FP) PO PRN ×2 (09:06→21:18)
[2017-08-23] MEDS: MELATONIN 5 MG TABLETS PO PRN (21:17)
[2017-08-23] MEDS: THIAMINE HCL 100 MG TABLET (FP) PO SCH (21:17)
[2017-08-24] MEDS ORDERED: METHADONE HCL 40 MG DISPERSABLE TABLET ONE (03:17)
[2017-08-24] MEDS ORDERED: METHADONE HCL 10 MG TABLET ONE (03:17)
[2017-08-24] MEDS: METHADONE 120 MG, METHADONE 30 MG PO SCH (06:31)
[2017-08-24] MEDS: PRENATAL VITAMINS W/ FOLIC ACID TABLET (FP) PO SCH (09:25)
[2017-08-24] MEDS: IBUPROFEN 400 MG TABLET (FP) PO PRN (09:25)
[2017-08-24] MEDS: NICOTINE 21 MG/24 HOURS TOPICAL PATCH TD SCH (09:25)
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
[2017-08-24] MEDS: THIAMINE HCL 100 MG TABLET (FP) PO SCH (21:23)
[2017-08-24] MEDS: MIRTAZAPINE 15 MG TABLET (FP) PO SCH (21:23)
[2017-08-24] MEDS: hydrOXYzine PAMOATE 25 MG CAPSULE (FP) PO PRN (21:23)
[2017-08-25] MEDS ORDERED: METHADONE HCL 10 MG TABLET ONE (06:45)
[2017-08-25] MEDS ORDERED: METHADONE HCL 40 MG DISPERSABLE TABLET ONE (06:46)
[2017-08-25] MEDS: METHADONE 120 MG, METHADONE 30 MG PO SCH (06:47)
[2017-08-25] MEDS: PRENATAL VITAMINS W/ FOLIC ACID TABLET (FP) PO SCH (10:08)
[2017-08-25] MEDS: NICOTINE 21 MG/24 HOURS TOPICAL PATCH TD SCH (10:08)
[2017-08-25] MEDS: hydrOXYzine PAMOATE 25 MG CAPSULE (FP) PO PRN (11:08)
--- NOTE | 2017-08-25 14:42 | PN ---
[facility] Progress Note Note: Patient c/o of dry skin after using soap provided to wash her face. Patient also reports thick white itchy vaginal discharge without order. Denies any hematuria, dysuria or urinary frequency. Vital Signs Temperature 97.4 F L 08/25/17 07:26 Pulse Rate 60 08/25/17 07:26 Respiratory Rate 18 08/25/17 07:26 Blood Pressure 100/65 08/25/17 07:26 O2 Sat by Pulse Oximetry (%) Laboratory Last Values WBC 8.1 K/mm3 (4.0-10.0) D 08/22/17 06:00 RBC 4.63 M/mm3 (3.60-5.2) 08/22/17 06:00 Hgb 13.2 GM/dL (10.7-15.3) 08/22/17 06:00 Hct 39.7 % (32.4-45.2) 08/22/17 06:00 MCV 85.6 fl (80-96) 08/22/17 06:00 MCH 28.4 pg (25.7-33.7) 08/22/17 06:00 MCHC 33.2 g/dl (32.0-36.0) 08/22/17 06:00 RDW 13.6 % (11.6-15.6) 08/22/17 06:00 Plt Count 318 K/MM3 (134-434) D 08/22/17 06:00 MPV 8.4 fl (7.5-11.1) D 08/22/17 06:00 Sodium 140 mmol/L (136-145) 08/22/17 06:00 Potassium 4.3 mmol/L (3.5-5.1) 08/22/17 06:00 Chloride 105 mmol/L (98-107) 08/22/17 06:00 Carbon Dioxide 27 mmol/L (21-32) 08/22/17 06:00 Anion Gap 8 (8-16) 08/22/17 06:00 BUN 16 mg/dL (7-18) 08/22/17 06:00 Creatinine 0.8 mg/dL (0.55-1.02) 08/22/17 06:00 Creat Clearance w eGFR > 60 (>60) 08/22/17 06:00 Random Glucose 118 mg/dL (74-106) H 08/22/17 06:00 Calcium 8.9 mg/dL (8.5-10.1) 08/22/17 06:00 Total Bilirubin 0.3 mg/dL (0.2-1.0) 08/22/17 06:00 AST 16 U/L (15-37) 08/22/17 06:00 ALT 23 U/L (12-78) 08/22/17 06:00 Alkaline Phosphatase 90 U/L (45-117) 08/22/17 06:00 Total Protein 8.2 g/dl (6.4-8.2) 08/22/17 06:00 Albumin 4.1 g/dl (3.4-5.0) 08/22/17 06:00 Urine Color Yellow 08/22/17 Unknown Urine Appearance Cloudy 08/22/17 Unknown Urine pH 6.0 (5.0-8.0) 08/22/17 Unknown Ur Specific [place] 1.023 (1.001-1.035) 08/22/17 Unknown Urine Protein Negative (NEGATIVE) 08/22/17 Unknown Urine Glucose (UA) Negative (NEGATIVE) 08/22/17 Unknown Urine Ketones Negative (NEGATIVE) 08/22/17 Unknown Urine Blood Negative (NEGATIVE) 08/22/17 Unknown Urine Nitrite Negative (NEGATIVE) 08/22/17 Unknown Urine Bilirubin Negative (<2.0 mg/dL) 08/22/17 Unknown Urine Urobilinogen Negative mg/dL (0.2-1.0) 08/22/17 Unknown Ur Leukocyte Esterase Trace (NEGATIVE) 08/22/17 Unknown Urine WBC (Auto) 6 /hpf (3-5) 08/22/17 Unknown Urine RBC (Auto) 2 /hpf (0-3) 08/22/17 Unknown Ur Epithelial Cells Moderate /HPF (FEW) 08/22/17 Unknown Urine Mucus Rare 08/22/17 Unknown RPR Titer Nonreactive (NONREACTIVE) 08/22/17 06:00 HIV 1&2 Antibody Screen Negative 08/22/17 06:00 HIV P24 Antigen Negative 08/22/17 06:00 A/P AOx3 in no apparent distress + dry skin Normal HR and Rhythm Plan: 1. Yeast Infection diflucan 150mg PO once increase fluids hygiene discussed with patient 2. Dry Skin aveno soap increase fluids continue to monitor
[2017-08-25] MEDS ORDERED: FLUCONAZOLE 50 MG TABLET PO ONE (15:00)
[2017-08-25] MEDS ORDERED: FLUCONAZOLE 100 MG TABLET (UD) PO ONE (18:45)
[2017-08-25] MEDS: IBUPROFEN 400 MG TABLET (FP) PO PRN (18:48)
[2017-08-25] MEDS: COLLOIDAL OATMEAL 1 BAR EACH TP PRN (18:49)
[2017-08-25] MEDS: MIRTAZAPINE 15 MG TABLET (FP) PO SCH (21:29)
[2017-08-25] MEDS: THIAMINE HCL 100 MG TABLET (FP) PO SCH (21:29)
[2017-08-26] MEDS ORDERED: METHADONE HCL 40 MG DISPERSABLE TABLET ONE (03:19)
[2017-08-26] MEDS ORDERED: METHADONE HCL 10 MG TABLET ONE (03:19)
[2017-08-26] MEDS: METHADONE 120 MG, METHADONE 30 MG PO SCH (06:20)
[2017-08-26] MEDS: NICOTINE 21 MG/24 HOURS TOPICAL PATCH TD SCH (10:03)
[2017-08-26] MEDS: PRENATAL VITAMINS W/ FOLIC ACID TABLET (FP) PO SCH (10:03)
[2017-08-26] MEDS: hydrOXYzine PAMOATE 25 MG CAPSULE (FP) PO PRN ×2 (10:05→21:05)
[2017-08-26] MEDS: IBUPROFEN 400 MG TABLET (FP) PO PRN (10:05)
[2017-08-26] MEDS: MIRTAZAPINE 15 MG TABLET (FP) PO SCH (21:05)
[2017-08-26] MEDS: THIAMINE HCL 100 MG TABLET (FP) PO SCH (21:06)
[2017-08-26] MEDS: NICOTINE POLACRILEX 2 MG GUM BC PRN (21:06)
[2017-08-27] MEDS ORDERED: METHADONE HCL 10 MG TABLET ONE (03:31)
[2017-08-27] MEDS ORDERED: METHADONE HCL 40 MG DISPERSABLE TABLET ONE (03:31)
[2017-08-27] MEDS: METHADONE 120 MG, METHADONE 30 MG PO SCH (06:43)
[2017-08-27] MEDS: NICOTINE 21 MG/24 HOURS TOPICAL PATCH TD SCH (10:17)
[2017-08-27] MEDS: PRENATAL VITAMINS W/ FOLIC ACID TABLET (FP) PO SCH (10:17)
[2017-08-27] MEDS: hydrOXYzine PAMOATE 25 MG CAPSULE (FP) PO PRN ×2 (13:06→21:46)
[2017-08-27] MEDS: THIAMINE HCL 100 MG TABLET (FP) PO SCH (21:45)
[2017-08-27] MEDS: MIRTAZAPINE 15 MG TABLET (FP) PO SCH (21:45)
[2017-08-28] MEDS ORDERED: METHADONE HCL 10 MG TABLET ONE (03:33)
[2017-08-28] MEDS ORDERED: METHADONE HCL 40 MG DISPERSABLE TABLET ONE (03:33)
[2017-08-28] MEDS: METHADONE 120 MG, METHADONE 30 MG PO SCH (06:23)
[2017-08-28] MEDS: NICOTINE 21 MG/24 HOURS TOPICAL PATCH TD SCH (10:27)
[2017-08-28] MEDS: PRENATAL VITAMINS W/ FOLIC ACID TABLET (FP) PO SCH (10:27)
[2017-08-28] MEDS: hydrOXYzine PAMOATE 25 MG CAPSULE (FP) PO PRN (18:42)
[2017-08-28] MEDS: MIRTAZAPINE 15 MG TABLET (FP) PO SCH (21:46)
[2017-08-28] MEDS: THIAMINE HCL 100 MG TABLET (FP) PO SCH (21:46)
[2017-08-28] MEDS: MELATONIN 5 MG TABLETS PO PRN (21:48)
[2017-08-28] MEDS: COLLOIDAL OATMEAL 1 BAR EACH TP PRN (22:30)
[2017-08-29] MEDS ORDERED: METHADONE HCL 40 MG DISPERSABLE TABLET ONE (05:52)
[2017-08-29] MEDS ORDERED: METHADONE HCL 10 MG TABLET ONE (05:52)
[2017-08-29] MEDS: METHADONE 120 MG, METHADONE 30 MG PO SCH (06:22)
[2017-08-29] MEDS: NICOTINE 21 MG/24 HOURS TOPICAL PATCH TD SCH (10:11)
[2017-08-29] MEDS: PRENATAL VITAMINS W/ FOLIC ACID TABLET (FP) PO SCH (10:11)
[2017-08-29] MEDS: hydrOXYzine PAMOATE 25 MG CAPSULE (FP) PO PRN ×2 (16:01→21:40)
--- NOTE | 2017-08-29 20:15 | PN ---
[facility] Progress Note Note: patient stated hurt left knee while tryi ng to get up no head injury,no loc, stated he is ok,did not want any treatment alert,ambulation without difficulty impression history of fall treatment initiate fall protocol 2 close monitoring patient refused to to er for evaluation
[2017-08-29] MEDS: THIAMINE HCL 100 MG TABLET (FP) PO SCH (21:39)
[2017-08-29] MEDS: MELATONIN 5 MG TABLETS PO PRN (21:40)
[2017-08-29] MEDS: MIRTAZAPINE 15 MG TABLET (FP) PO SCH (21:40)
[2017-08-30] MEDS ORDERED: METHADONE HCL 10 MG TABLET ONE (06:00)
[2017-08-30] MEDS ORDERED: METHADONE HCL 40 MG DISPERSABLE TABLET ONE (06:01)
[2017-08-30] MEDS: METHADONE 120 MG, METHADONE 30 MG PO SCH (06:35)
[2017-08-30] MEDS: NICOTINE POLACRILEX 2 MG GUM BC PRN ×2 (07:16→13:20)
[2017-08-30] MEDS: hydrOXYzine PAMOATE 25 MG CAPSULE (FP) PO PRN ×2 (08:45→21:31)
[2017-08-30] MEDS: PRENATAL VITAMINS W/ FOLIC ACID TABLET (FP) PO SCH (09:39)
[2017-08-30] MEDS: NICOTINE 21 MG/24 HOURS TOPICAL PATCH TD SCH (09:39)
[2017-08-30] MEDS: MIRTAZAPINE 15 MG TABLET (FP) PO SCH (21:31)
[2017-08-30] MEDS: THIAMINE HCL 100 MG TABLET (FP) PO SCH (21:31)
[2017-08-30] MEDS: MELATONIN 5 MG TABLETS PO PRN (21:31)
[2017-08-31] MEDS ORDERED: METHADONE HCL 10 MG TABLET ONE (03:12)
[2017-08-31] MEDS ORDERED: METHADONE HCL 40 MG DISPERSABLE TABLET ONE (03:13)
[2017-08-31] MEDS: METHADONE 120 MG, METHADONE 30 MG PO SCH (06:40)
[2017-08-31] MEDS: NICOTINE 21 MG/24 HOURS TOPICAL PATCH TD SCH (10:12)
[2017-08-31] MEDS: PRENATAL VITAMINS W/ FOLIC ACID TABLET (FP) PO SCH (10:12)
[2017-08-31] MEDS: hydrOXYzine PAMOATE 25 MG CAPSULE (FP) PO PRN (13:15)
[2017-08-31] MEDS: MIRTAZAPINE 30 MG TABLET (FP) PO SCH (21:24)
[2017-08-31] MEDS: THIAMINE HCL 100 MG TABLET (FP) PO SCH (21:24)
[2017-08-31] MEDS: MELATONIN 5 MG TABLETS PO PRN (21:24)
[2017-09-01] MEDS ORDERED: METHADONE HCL 10 MG TABLET ONE (05:11)
[2017-09-01] MEDS ORDERED: METHADONE HCL 40 MG DISPERSABLE TABLET ONE (05:12)
[2017-09-01] MEDS: METHADONE 120 MG, METHADONE 30 MG PO SCH (06:23)
[2017-09-01 06:54] VITALS: TEMP 97.9
[2017-09-01] MEDS: PRENATAL VITAMINS W/ FOLIC ACID TABLET (FP) PO SCH (10:48)
[2017-09-01] MEDS: NICOTINE 21 MG/24 HOURS TOPICAL PATCH TD SCH (10:49)
[2017-09-01] MEDS: NICOTINE POLACRILEX 2 MG GUM BC PRN (10:50)
[2017-09-01] MEDS: hydrOXYzine PAMOATE 25 MG CAPSULE (FP) PO PRN (12:46)
[2017-09-01] MEDS: MELATONIN 5 MG TABLETS PO PRN (21:23)
[2017-09-01] MEDS: MIRTAZAPINE 30 MG TABLET (FP) PO SCH (21:23)
[2017-09-01] MEDS: THIAMINE HCL 100 MG TABLET (FP) PO SCH (21:23)
[2017-09-02] MEDS ORDERED: METHADONE HCL 10 MG TABLET ONE (03:19)
[2017-09-02] MEDS ORDERED: METHADONE HCL 40 MG DISPERSABLE TABLET ONE (03:19)
[2017-09-02] MEDS: METHADONE 120 MG, METHADONE 30 MG PO SCH (06:13)
[2017-09-02] MEDS: PRENATAL VITAMINS W/ FOLIC ACID TABLET (FP) PO SCH (09:18)
[2017-09-02] MEDS: NICOTINE POLACRILEX 2 MG GUM BC PRN (09:19)
[2017-09-02] MEDS: hydrOXYzine PAMOATE 25 MG CAPSULE (FP) PO PRN ×2 (09:19→21:34)
[2017-09-02] MEDS: NICOTINE 21 MG/24 HOURS TOPICAL PATCH TD SCH (09:20)
--- NOTE | 2017-09-02 13:55 | PN ---
Psychiatric Progress Note Vital Signs: Vital Signs Period Temp Pulse Resp BP Sys/Holley Pulse Ox Last 24 Hr 97.9 F 71 16-18 103/66 Date of Session: 09/02/17 Chief Complaint:: Discharge visit HPI: Patient addressed Opioid,Cannabis and Cocaine dependence comorbid with Bipolar disorder,PTSD. ROS: Significant for Seizure disorder. Current Medications: Active Medications Generic Name Dose Route Start Last Admin Trade Name Freq PRN Reason Stop Dose Admin Acetaminophen 650 mg 08/21/17 15:46 Tylenol - PO Q4H PRN FEVER Al Hydroxide/Mg Hydroxide 30 ml 08/21/17 15:46 Mylanta Oral Suspension - PO Q6H PRN DYSPEPSIA Albuterol Sulfate 2 puff 08/21/17 15:52 Ventolin Hfa Inhaler - IH Q4H PRN SHORT OF BREATH/WHEEZING Colloidal Oatmeal 1 applic 08/25/17 14:37 08/28/17 22:30 Aveeno Soap - TP 1 applic DAILY PRN Administration HYGEINE Eucalyptus/Menthol/Phenol/Sorbitol 1 each 08/21/17 15:46 Cepastat Lozenge - MM Q4H PRN SORE THROAT Guaifenesin 10 ml 08/21/17 15:46 Robitussin Dm - PO Q6H PRN COUGH Hydroxyzine Pamoate 25 mg 08/21/17 15:46 09/02/17 09:19 Vistaril - PO 25 mg Q4H PRN Administration AGITATION Ibuprofen 400 mg 08/21/17 15:46 08/26/17 10:05 Motrin - PO 400 mg Q6H PRN Administration Pain level 4-6 Loperamide HCl 4 mg 08/21/17 15:46 Imodium - PO Q6H PRN DIARRHEA Magnesium Citrate 300 ml 08/21/17 15:46 Citroma - PO Q48H PRN CONSTIPATION Magnesium Hydroxide 30 ml 08/21/17 15:46 Milk Of Magnesia - PO DAILY PRN CONSTIPATION Melatonin 5 mg 08/21/17 22:00 09/01/17 21:23 Melatonin PO 5 mg HS PRN Administration INSOMNIA Methadone HCl 120 mg/ 150 mg 08/29/17 06:00 09/02/17 06:13 Methadone HCl 30 mg PO 09/05/17 05:59 150 mg DAILY@0600 VILMA Administration Mirtazapine 30 mg 08/31/17 22:00 05/15/18 21:23 Remeron - PO 30 mg HS VILMA Administration Nicotine 21 mg 08/21/17 16:15 09/02/17 09:20 Nicoderm Patch - TD 21 mg DAILY VILMA Administration Nicotine Polacrilex 2 mg 08/21/17 15:46 09/02/17 09:19 Nicorette Gum - BC 2 mg Q2H PRN Administration NICOTINE REPLACEMENT RX Multivit/Folic Acid/Iron 1 tab 08/22/17 10:00 09/02/17 09:18 Vitamins (Sjr) - PO 1 tab DAILY VILMA Administration Pseudoephedrine/Triprolidine 1 combo 08/21/17 15:46 Actifed - PO TID PRN NASAL CONGESTION Thiamine HCl 100 mg 08/21/17 22:00 09/01/17 21:23 Vitamin B1 - PO Not Given HS VILMA Current Side Effect: No Lab tests ordered: No Lab tests reviewed: Yes Provider note:: Patient will complete this program tomorrow 09/03/17.She has met her treatment goals and will continue to address her issues on outpatient basis .patient reports finding that current medications :Remeron 30 mg po hs help to cope with sleeping difficulties,depression.script for 30 days providedSupportive therapy provided focusing on relapse prevention:coping skills ,support utilizations as well as other resourses to maintain recovery has been discussed with the patient .Patient is stable for discharge tomorrow 09/03/17. Total face to face time:: 30 Mental Status Exam - Mental Status Exam Alert and Oriented to: Time, Place, Person Cognitive Function: Grossly Intact Patient Appearance: Well Groomed Mood: Hopeful, Euthymic Affect: Appropriate, Mood Congruent Patient Behavior: Cooperative Speech Pattern: Clear Voice Loudness: Normal Thought Process: Goal Oriented Thought Disorder: Not Present Hallucinations: Denies Suicidal Ideation: Denies Homicidal Ideation: Denies Insight/Judgement: Fair Sleep: Fair Appetite: Fair Muscle strength/Tone: Normal Gait/Station: Normal Psychiatric Treatment Plan - Problem List (1) Cannabis dependence Current Visit: Yes (2) Cocaine dependence Current Visit: Yes (3) Nicotine dependence Current Visit: Yes (4) Substance induced mood disorder Current Visit: Yes (5) PTSD (post-traumatic stress disorder) Current Visit: Yes (6) Opioid dependence Current Visit: Yes (7) Seizure disorder Current Visit: Yes (8) Bipolar II disorder Current Visit: Yes
[2017-09-02] MEDS: MELATONIN 5 MG TABLETS PO PRN (21:34)
[2017-09-02] MEDS: THIAMINE HCL 100 MG TABLET (FP) PO SCH (21:34)
[2017-09-02] MEDS: MIRTAZAPINE 30 MG TABLET (FP) PO SCH (21:34)
[2017-09-03] MEDS ORDERED: METHADONE HCL 10 MG TABLET ONE (03:29)
[2017-09-03] MEDS ORDERED: METHADONE HCL 40 MG DISPERSABLE TABLET ONE (03:29)
[2017-09-03] MEDS: METHADONE 120 MG, METHADONE 30 MG PO SCH (06:35)
[2017-09-03 07:17] VITALS: BP 105/67; PULSE 79
[2017-09-03] MEDS: PRENATAL VITAMINS W/ FOLIC ACID TABLET (FP) PO SCH (09:51)
[2017-09-03] MEDS: hydrOXYzine PAMOATE 25 MG CAPSULE (FP) PO PRN (09:51)
[2017-09-03] MEDS: NICOTINE 21 MG/24 HOURS TOPICAL PATCH TD SCH (09:51)
[2017-09-03] MEDS: NICOTINE POLACRILEX 2 MG GUM BC PRN (09:52)
== END 2017-09-03 10:04 | disposition home or self-care (01) | DRG 772 ==
LOC: YASAS 12:59 → Y3E 16:13
PROVIDERS: ADMIT Psychiatry & Neurology Psychiatry; ATTEND Psychiatry & Neurology Psychiatry
PROC: HZ42ZZZ Group Counseling for Substance Abuse Treatment, Cognitive-Behavioral (ICD-10-PCS; principal; 2017-08-21)
DX: F12.20 Cannabis dependence, uncomplicated (principal); F11.20 Opioid dependence, uncomplicated; F14.20 Cocaine dependence, uncomplicated; F17.210 Nicotine dependence, cigarettes, uncomplicated; F19.24 Other psychoactive substance dependence with psychoactive substance-induced mood disorder; F43.10 Post-traumatic stress disorder, unspecified; F31.81 Bipolar II disorder; F51.05 Insomnia due to other mental disorder; J45.20 Mild intermittent asthma, uncomplicated; G40.909 Epilepsy, unspecified, not intractable, without status epilepticus; B37.3 Candidiasis of vulva and vagina; L98.8 Other specified disorders of the skin and subcutaneous tissue; Z87.898 Personal history of other specified conditions; W19.XXXA Unspecified fall, initial encounter; Y93.9 Activity, unspecified; Y92.239 Unspecified place in hospital as the place of occurrence of the external cause; Z91.5 Personal history of self-harm
CPT/HCPCS: 36415; 80053; 81003; 81015; 85027; 86593; 87389; 90732; 93005; 93010; G0009

== ENCOUNTER 2021-07-09 16:50 | Inpatient (IN) | payer OTHER ==
[2021-07-09] MEDS ORDERED: MAGNESIUM HYDROX 2400MG/30ML ORAL SUSPENSION 30 ML CUP PO PRN (19:00)
[2021-07-09] MEDS ORDERED: MAG HYDROX/AL HYDROX/SIMETH 30 ML UNIT-DOSE CUP PO PRN (19:00)
[2021-07-09] MEDS ORDERED: ACETAMINOPHEN 325 MG TABLET (FP) PO PRN ×2 (19:00)
[2021-07-09] MEDS ORDERED: MENTHOL/PHENOL 1 EACH UD MM PRN (19:00)
[2021-07-09] MEDS ORDERED: IBUPROFEN 400 MG TABLET (FP) PO PRN (19:00)
[2021-07-09] MEDS ORDERED: ALBUTEROL SO4 HFA INHALER IH PRN (19:00)
[2021-07-09] MEDS ORDERED: DICYCLOMINE HCL 10 MG CAPSULE PO PRN (19:00)
[2021-07-09] MEDS ORDERED: NICOTINE 10 MG CARTRIDGE (INHALER) IH PRN (19:00)
[2021-07-09] MEDS ORDERED: BISMUTH SUBSALICYLATE 524 MG/30 ML PO PRN (19:00)
[2021-07-09] MEDS ORDERED: ONDANSETRON *ODT* 4 MG TABLET SL PRN (19:00)
[2021-07-09] MEDS ORDERED: MELATONIN 5 MG TABLETS PO PRN (19:00)
[2021-07-09] MEDS ORDERED: LOPERAMIDE HCL 2 MG CAPSULE PO PRN (19:00)
[2021-07-09] MEDS ORDERED: MAGNESIUM CITRATE 300 ML BOTTLE PO PRN (19:00)
[2021-07-09 21:27] VITALS: BMI 16.0
[2021-07-09] MEDS ORDERED: THIAMINE HCL 100 MG TABLET (FP) PO SCH (22:00)
[2021-07-09] MEDS: METHOCARBAMOL 500 MG TABLET PO PRN (22:29)
[2021-07-09] MEDS: hydrOXYzine PAMOATE 25 MG CAPSULE (FP) PO PRN (22:30)
[2021-07-10] MEDS: hydrOXYzine PAMOATE 25 MG CAPSULE (FP) PO PRN ×2 (05:04→09:08)
[2021-07-10] MEDS: METHOCARBAMOL 500 MG TABLET PO PRN ×2 (05:04→12:50)
[2021-07-10] MEDS: NICOTINE POLACRILEX 2 MG GUM BUC PRN ×2 (05:14→07:40)
[2021-07-10] MEDS ORDERED: clonazePAM 0.5 MG ODT TABLETS SL PRN (08:41)
[2021-07-10] MEDS ORDERED: cloNIDine HCL 0.1 MG TABLET PO PRN (08:41)
[2021-07-10] MEDS ORDERED: methaDONE HCL 10 MG TABLET (FOR DETOX USE ONLY) PO ONE (09:00)
[2021-07-10] MEDS ORDERED: NICOTINE 14 MG/24 HOURS TOPICAL PATCH TD SCH (10:00)
[2021-07-10] MEDS ORDERED: PRENATAL VITAMINS W/ FOLIC ACID TABLET (FP) PO SCH (10:00)
[2021-07-10 11:05] LABS: ALBUMIN 3.5 g/dl (3.4-5.0); HEMATOCRIT 37.6 % (32.4-45.2); HEMOGLOBIN 12.4 GM/dL (10.7-15.3); MCH 28.6 pg (25.7-33.7); MCHC 32.9 g/dl (32.0-36.0); MEAN CELL VOLUME 86.9 fl (80-96); MEAN PLT VOLUME 7.5 fl (7.5-11.1); PLATELET COUNT 324 10^3/uL (134-434); RBC 4.33 M/mm3 (3.60-5.2); RDW 14.3 % (11.6-15.6); WHITE BLOOD COUNT 6.7 K/mm3 (4.0-10.0)
[2021-07-10 11:06] LABS: BLOOD UREA NITROGEN 13.3 mg/dL (7-18)
[2021-07-10 11:08] LABS: CALCIUM 8.8 mg/dL (8.5-10.1); CREATININE 0.8 mg/dL (0.55-1.3)
[2021-07-10 11:10] LABS: BILIRUBIN,TOTAL 0.3 mg/dL (0.2-1)
[2021-07-10] MEDS ORDERED: FLU VACC QS2021-22(6MOS UP)/PF 60 MCG/0.5 ML SYRINGE IM ONE (13:00)
[2021-07-10 13:41] VITALS: BP 122/85; PULSE 91; TEMP 96.3
[2021-07-10 13:41] LABS: HIV INTERPRETATION NEGATIVE (NEGATIVE)
[2021-07-11 07:07] LABS: SARS-CoV-2 NAA Not Detected (Not Detected)
[2021-07-11 07:07] LABS: SARS-CoV-2 NAA Not Detected (Not Detected)
[2021-07-12] MEDS ORDERED: methaDONE HCL 10 MG TABLET (FOR DETOX USE ONLY) PO ONE (10:00)
[2021-07-14] MEDS ORDERED: methaDONE HCL 10 MG TABLET (FOR DETOX USE ONLY) PO ONE (10:00)
== END 2021-07-10 15:00 | disposition left against medical advice (07) | DRG 770 ==
LOC: YASAS 16:50 → Y3N 20:32
PROVIDERS: ADMIT Allergy & Immunology; ATTEND Allergy & Immunology
PROC: HZ2ZZZZ Detoxification Services for Substance Abuse Treatment (ICD-10-PCS; principal; 2021-07-09)
DX: F11.23 Opioid dependence with withdrawal (principal); F13.20 Sedative, hypnotic or anxiolytic dependence, uncomplicated; F14.20 Cocaine dependence, uncomplicated; F10.20 Alcohol dependence, uncomplicated; F17.210 Nicotine dependence, cigarettes, uncomplicated
CPT/HCPCS: 36415; 80053; 81025; 85027; 86780; 87389; 87811; C9803-CS; U0003; U0005

== ENCOUNTER 2023-08-20 16:07 | Inpatient (IN) | payer OTHER ==
[2023-08-20 17:18] VITALS: BMI 15.7
[2023-08-20] MEDS ORDERED: NALOXONE HCL 0.4 MG/ML VIAL IM PRN (17:47)
[2023-08-20] MEDS ORDERED: POLYETHYLENE GLYCOL (HEALTHYLAX) 3350 17 GM PACKET PO PRN (17:47)
[2023-08-20] MEDS ORDERED: IBUPROFEN 600 MG TABLET (FP) PO PRN (17:47)
[2023-08-20] MEDS ORDERED: IBUPROFEN 400 MG TABLET (FP) PO PRN (17:47)
[2023-08-20] MEDS ORDERED: diazePAM 5 MG TABLET PO PRN (17:47)
[2023-08-20] MEDS ORDERED: guaiFENesin 600 MG TABLET.ER (FP) PO PRN (17:47)
[2023-08-20] MEDS ORDERED: ACETAMINOPHEN 325 MG TABLET (FP) PO PRN (17:47)
[2023-08-20] MEDS ORDERED: BENZONATATE 200 MG CAPSULE PO PRN (17:47)
[2023-08-20] MEDS ORDERED: DICYCLOMINE HCL 10 MG CAPSULE PO PRN (17:47)
[2023-08-20] MEDS ORDERED: LOPERAMIDE HCL 2 MG CAPSULE PO PRN (17:47)
[2023-08-20] MEDS ORDERED: NALOXONE HCL (KLOXXADO) 8 MG SPRAY NS PRN (17:47)
[2023-08-20] MEDS ORDERED: MAGNESIUM HYDROX 2400MG/30ML ORAL SUSPENSION 30 ML CUP PO PRN (17:47)
[2023-08-20] MEDS ORDERED: ALBUTEROL SO4 HFA INHALER IH PRN (17:50)
[2023-08-20] MEDS ORDERED: ONDANSETRON *ODT* 4 MG TABLET ONE (18:01)
[2023-08-20] MEDS ORDERED: methaDONE HCL 10 MG TABLET (FOR DETOX USE ONLY) ONE (18:01)
[2023-08-20] MEDS: ONDANSETRON *ODT* 4 MG TABLET SL PRN (18:07)
[2023-08-20] MEDS ORDERED: cloNIDine HCL 0.1 MG TABLET ONE (18:12)
[2023-08-20] MEDS: cloNIDine HCL 0.1 MG TABLET PO SCH (18:14)
[2023-08-20] MEDS ORDERED: methaDONE HCL 10 MG TABLET PO PRN (19:48)
[2023-08-20] MEDS: PRENATAL VITAMINS W/ FOLIC ACID TABLET (FP) PO SCH (19:52)
[2023-08-20] MEDS: methaDONE HCL 10 MG TABLET PO ONE (21:20)
[2023-08-20] MEDS: METHOCARBAMOL 500 MG TABLET PO PRN (22:59)
[2023-08-20] MEDS: hydrOXYzine PAMOATE 25 MG CAPSULE (FP) PO PRN (22:59)
[2023-08-20] MEDS: THIAMINE 100 MG TABLET PO SCH (23:00)
[2023-08-20] MEDS: diazePAM 5 MG TABLET PO SCH (23:00)
[2023-08-20] MEDS: MELATONIN 5 MG TABLETS PO SCH (23:00)
[2023-08-21] MEDS: NICOTINE 21 MG/24 HOURS TOPICAL PATCH TD SCH (10:21)
[2023-08-21] MEDS: methaDONE 40 MG, methaDONE 10 MG PO ONE (10:21)
[2023-08-21 11:53] LABS: HEMATOCRIT 34.2 % (32.4-45.2); HEMOGLOBIN 11.2 GM/dL (10.7-15.3); MCH 28.1 pg (25.7-33.7); MCHC 32.7 g/dl (32.0-36.0); MEAN CELL VOLUME 85.9 fl (80-96); MEAN PLT VOLUME 7.8 fl (7.5-11.1); PLATELET COUNT 244 10^3/uL (134-434); RBC 3.98 M/mm3 (3.60-5.2); RDW 15.4 % (11.6-15.6); WHITE BLOOD COUNT 5.2 K/mm3 (4.0-10.0)
[2023-08-21 12:02] LABS: CHLORIDE 111 mmol/L (98-107); POTASSIUM 3.5 mmol/L (3.5-5.1); SODIUM 141 mmol/L (136-145)
[2023-08-21 12:14] LABS: ALBUMIN 2.5 g/dl (3.4-5.0); ANION GAP 3 mmol/L (4-13); BLOOD UREA NITROGEN 9.8 mg/dL (7-18); CALCIUM 8.1 mg/dL (8.5-10.1); CO2 27 mmol/L (21-32); GLUCOSE,RANDOM 219 mg/dL (74-106)
[2023-08-21 12:17] LABS: CREATININE 0.9 mg/dL (0.55-1.3)
[2023-08-21 12:18] LABS: SGOT/AST 59 U/L (15-37); TOT PROT 6.1 g/dl (6.4-8.2)
[2023-08-21 12:19] LABS: BILIRUBIN,TOTAL 0.8 mg/dL (0.2-1)
[2023-08-21 12:20] LABS: ALK PHOS 180 U/L (45-117)
[2023-08-21 12:25] LABS: SGPT/ALT 1032 U/L (13-61)
[2023-08-21 12:52] LABS: HIV INTERPRETATION NEGATIVE (NEGATIVE)
[2023-08-21] MEDS: LACTULOSE 20 GM/30 ML UDC (FOR ORAL USE ONLY) PO SCH (13:33)
[2023-08-21] MEDS: SUVOREXANT 10 MG TABLET PO PRN (22:23)
[2023-08-22] MEDS ORDERED: cloNIDine HCL 0.1 MG TABLET PO PRN
[2023-08-22] MEDS: diazePAM 5 MG TABLET PO SCH (05:58)
[2023-08-22] MEDS: methaDONE 40 MG, methaDONE 20 MG PO ONE (09:44)
[2023-08-22] MEDS: TRIAMCINOLONE ACET 0.5% CREAM 15 GM TUBE TP SCH (22:25)
[2023-08-22] MEDS: MAG HYDROX/AL HYDROX/SIMETH 30 ML UNIT-DOSE CUP PO PRN (22:45)
[2023-08-22] MEDS: BENZOCAINE/MENTHOL (CHLORASEPTIC ) LOZENGE MM PRN (22:45)
[2023-08-23] MEDS: diazePAM 5 MG TABLET PO SCH (05:55)
[2023-08-23] MEDS: methaDONE 40 MG, methaDONE 30 MG PO ONE (09:37)
[2023-08-23 13:01] LABS: ALBUMIN 3.3 g/dl (3.4-5.0); BILIRUBIN,DIRECT 0.4 mg/dL (0.0-0.2); BILIRUBIN,TOTAL 0.6 mg/dL (0.2-1); TOT PROT 8.5 g/dl (6.4-8.2)
[2023-08-23] MEDS: BISMUTH SUBSALICYLATE 524 MG/30 ML PO PRN (17:15)
[2023-08-24] MEDS: diazePAM 5 MG TABLET PO ONE (05:56)
[2023-08-24] MEDS: methaDONE HCL 40 MG DISPERSABLE TABLET PO ONE (09:39)
[2023-08-24] MEDS: PENICILLIN G BENZATHINE 2,400,000 UNIT/4 ML PFS IM ONE (10:35)
[2023-08-25] MEDS ORDERED: methaDONE HCL 10 MG TABLET PO PRN (00:05)
[2023-08-25] MEDS: methaDONE 40 MG, methaDONE 30 MG PO ONE (09:39)
[2023-08-25] MEDS ORDERED: methaDONE HCL 40 MG DISPERSABLE TABLET PO ONE ×2 (10:00)
[2023-08-25] MEDS ORDERED: methaDONE 80 MG, methaDONE 10 MG PO ONE (10:00)
[2023-08-26] MEDS: methaDONE 40 MG, methaDONE 30 MG PO ONE (09:17)
[2023-08-26 09:36] VITALS: BP 108/99; PULSE 106; RESP 20; TEMP 97.7
[2023-08-26] MEDS ORDERED: methaDONE HCL 10 MG TABLET PO ONE (10:00)
== END 2023-08-26 11:05 | disposition home or self-care (01) | DRG 773 ==
LOC: YASAS 16:07 → Y6N 18:17
PROVIDERS: ADMIT Allergy & Immunology; ATTEND Surgery
PROC: HZ2ZZZZ Detoxification Services for Substance Abuse Treatment (ICD-10-PCS; principal; 2023-08-20)
DX: F11.23 Opioid dependence with withdrawal (principal); F10.230 Alcohol dependence with withdrawal, uncomplicated; F13.20 Sedative, hypnotic or anxiolytic dependence, uncomplicated; F14.20 Cocaine dependence, uncomplicated; F12.20 Cannabis dependence, uncomplicated; F17.210 Nicotine dependence, cigarettes, uncomplicated; F19.282 Other psychoactive substance dependence with psychoactive substance-induced sleep disorder; F31.9 Bipolar disorder, unspecified; F43.10 Post-traumatic stress disorder, unspecified; E72.20 Disorder of urea cycle metabolism, unspecified; J45.20 Mild intermittent asthma, uncomplicated; L20.82 Flexural eczema; R63.4 Abnormal weight loss; Z68.1 Body mass index [BMI] 19.9 or less, adult; Z86.19 Personal history of other infectious and parasitic diseases
CPT/HCPCS: 36415; 80053; 80076; 80305; 80307; 81025; 82140; 82962; 85027; 86593; 86780; 86803; 87389; 87522; 93005; 93010; Q0162

== ENCOUNTER 2024-03-08 17:07 | Inpatient (IN) | payer OTHER ==
[2024-03-08 18:13] VITALS: BMI 22.8
[2024-03-08] MEDS ORDERED: ALBUTEROL SO4 HFA INHALER IH PRN (18:59)
[2024-03-08] MEDS ORDERED: guaiFENesin 600 MG TABLET.ER (FP) PO PRN (19:06)
[2024-03-08] MEDS ORDERED: BENZOCAINE/MENTHOL (CHLORASEPTIC ) LOZENGE MM PRN (19:06)
[2024-03-08] MEDS ORDERED: P-EPHED 60MG/TRIPROLIDI 2.5MG TABLET PO PRN (19:06)
[2024-03-08] MEDS ORDERED: MAGNESIUM HYDROX 2400MG/30ML ORAL SUSPENSION 30 ML CUP PO PRN (19:06)
[2024-03-08] MEDS ORDERED: NICOTINE POLACRILEX 2 MG LOZENGE BC PRN (19:06)
[2024-03-08] MEDS ORDERED: BISMUTH SUBSALICYLATE 524 MG/30 ML PO PRN (19:06)
[2024-03-08] MEDS ORDERED: NALOXONE (NARCAN) HCL 4 MG/0.1 ML SPRAY NS PRN (19:06)
[2024-03-08] MEDS ORDERED: NICOTINE POLACRILEX 2 MG GUM BUC PRN (19:06)
[2024-03-08] MEDS ORDERED: BENZONATATE 200 MG CAPSULE PO PRN (19:06)
[2024-03-08] MEDS ORDERED: MAG HYDROX/AL HYDROX/SIMETH 30 ML UNIT-DOSE CUP PO PRN (19:06)
[2024-03-08] MEDS ORDERED: POLYETHYLENE GLYCOL (HEALTHYLAX) 3350 17 GM PACKET PO PRN (19:06)
[2024-03-08] MEDS ORDERED: LOPERAMIDE HCL 2 MG CAPSULE PO PRN (19:06)
[2024-03-08] MEDS ORDERED: methaDONE HCL 10 MG TABLET (FOR DETOX USE ONLY) ONE (20:02)
[2024-03-08] MEDS: methaDONE HCL 10 MG TABLET (FOR DETOX USE ONLY) PO ONE (20:17)
[2024-03-08] MEDS: METHOCARBAMOL 500 MG TABLET PO PRN (21:15)
[2024-03-08] MEDS: THIAMINE 100 MG TABLET PO SCH (21:15)
[2024-03-08] MEDS: MELATONIN 5 MG TABLETS PO SCH (21:15)
[2024-03-08] MEDS: cloNIDine HCL 0.1 MG TABLET PO PRN (21:16)
[2024-03-08] MEDS: CLINDAMYCIN HCL 150 MG CAPSULE (FP) PO SCH (23:50)
[2024-03-09] MEDS: ONDANSETRON *ODT* 4 MG TABLET SL PRN (06:19)
[2024-03-09] MEDS: methaDONE 40 MG, methaDONE 10 MG PO ONE (09:09)
[2024-03-09] MEDS: PRENATAL VITAMINS W/ FOLIC ACID TABLET (FP) PO SCH (09:10)
[2024-03-09] MEDS: ACETAMINOPHEN 325 MG TABLET (FP) PO PRN (14:05)
[2024-03-09] MEDS: diazePAM 5 MG TABLET PO PRN (14:52)
[2024-03-10] MEDS: methaDONE 40 MG, methaDONE 20 MG PO ONE (09:13)
[2024-03-10] MEDS ORDERED: methaDONE HCL 10 MG TABLET (FOR DETOX USE ONLY) PO ONE (10:00)
[2024-03-11] MEDS: cloNIDine HCL 0.1 MG TABLET PO PRN (05:50)
[2024-03-11] MEDS: methaDONE 40 MG, methaDONE 30 MG PO ONE (09:13)
[2024-03-11] MEDS: APIXABAN 5 MG TABLET PO SCH (22:57)
[2024-03-11] MEDS: SUVOREXANT 10 MG TABLET PO PRN (22:57)
[2024-03-12] MEDS: methaDONE HCL 40 MG DISPERSABLE TABLET PO ONE (09:03)
[2024-03-12] MEDS ORDERED: methaDONE HCL 10 MG TABLET (FOR DETOX USE ONLY) PO ONE (10:00)
[2024-03-13 07:29] VITALS: RESP 16
[2024-03-13] MEDS: methaDONE 80 MG, methaDONE 10 MG PO ONE (09:08)
[2024-03-13] MEDS: NALOXONE (NYS OPIOID OVERDOSE PROGRAM) 4 MG/0.1 ML SPRAY NS PRN (09:29)
[2024-03-13 11:19] VITALS: BP 128/85; PULSE 89; TEMP 98.5
== END 2024-03-13 09:52 | disposition home or self-care (01) | DRG 773 ==
LOC: YASAS 17:07 → Y6N 19:33
PROVIDERS: ADMIT Allergy & Immunology; ATTEND Surgery
PROC: HZ2ZZZZ Detoxification Services for Substance Abuse Treatment (ICD-10-PCS; principal; 2024-03-08)
DX: F11.23 Opioid dependence with withdrawal (principal); F14.20 Cocaine dependence, uncomplicated; F12.20 Cannabis dependence, uncomplicated; F17.213 Nicotine dependence, cigarettes, with withdrawal; J45.20 Mild intermittent asthma, uncomplicated; Z86.718 Personal history of other venous thrombosis and embolism; Z79.01 Long term (current) use of anticoagulants; Z56.0 Unemployment, unspecified; Z59.00 Homelessness unspecified
CPT/HCPCS: 72070-TC-FY; 80305; 80307; 81025; 87070; 87186; 87205; 93005; 93010; Q0162